=== PATIENT | male | born 1950 | race Two or more races ===

== ENCOUNTER 2017-12-15 04:05 | Emergency (ER) | payer MEDICARE ==
[~2017-12-15] VITALS: Ht 175.3 cm; Wt 72.6 kg
[~2017-12-15 04:05] MED LIST: CIPRO500 MG PO
--- NOTE | 2017-12-15 04:25 | Emergency Room Report ---
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 Thought "I was going to pass out. " He states he always has pain to legs, no acute worsening tonight. Chest pain is left and right side of chest, worse with movement, reproducible. + smoker Denies ETOH, drug use No history of CAD, DM, HTN No history of previous stroke Patient denies fever, chills, cough Patient seems more interested in sleeping than providing HPI - I had to continue to wake him up Patient denies homelessness, states he lives with people "that he pays rent" Allergies: Coded Allergies: No Known Allergies (Unverified , 09/11/15) Patient History Past Medical History: other - kidney stone Past Surgical History: none Pertinent Family History: none Social History: Reports: smoking Immunizations: UTD Reviewed Nursing Documentation: PMH: Agreed; PSxH: Agreed Nursing Documentation-PMH Past Medical History: No History, Except For Review of Systems All Other Systems: negative except mentioned in HPI Physical Exam Vital Signs Date Time Temp Pulse Resp B/P (MAP) Pulse Ox O2 Delivery O2 Flow Rate FiO2 12/15/17 04:05 97.7 74 16 128/75 96 Room Air 97.7 Sp02 EP Interpretation: reviewed, normal General Appearance: normal inspection, well appearing, no apparent distress, alert, GCS 15, non-toxic, other - malodorous Head: normocephalic, atraumatic Eyes: bilateral eye PERRL, bilateral eye EOMI ENT: normal ENT inspection, hearing grossly normal, normal pharynx, no angioedema, normal voice, TMs + canals normal, uvula midline, moist mucus membranes Neck: normal inspection, full range of motion, supple, thyroid normal, no meningismus, no bony tend Respiratory: normal inspection, lungs clear, normal breath sounds, no rhonchi, no respiratory distress, no retraction, no accessory muscle use, no wheezing, speaking full sentences, other - Chest pain reproducible to left and right chest wall Cardiovascular #1: regular rate, rhythm, no edema, no JVD, normal capillary refill Gastrointestinal: normal inspection, normal bowel sounds, non tender, soft, no mass, no peritonitis, non-distended, no guarding, no hernia, no pulsatile mass Genitourinary: no CVA tenderness Musculoskeletal: normal inspection, back normal, normal range of motion, no calf tenderness, pelvis stable, Arabella's Sign negative Neurologic: normal inspection, alert, oriented x3, responsive, 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 No leuks. Trop WNL. CXR negative for trauma, PTX, PNA, cardiomegaly, CHF to name a few Was given analgesia for chronic leg pain *Nurse notes another recent IV/venous blood draw puncture wound on his arm near where IV placed here. Likely has been to other ERs/hospitals recently although he denies Patient likely homeless, malingering for retirement Slept immediately upon arrival here and during entire ED stay ER course: Patient has remained stable during ED stay. Disposition: Patient is to be discharged to home Patient is instructed to follow up with their primary care doctor within 5 days. Strict return precautions discussed with patient such as fever, chills, worsening/severe pain, nausea, vomiting, which may indicate severe illness. Patient verbalizes understanding and agrees with plan. Please note that this Emergency Department Report was dictated using [employer] canvas products technology software, occasionally this can lead to erroneous entry secondary to interpretation by the dictation equipment EKG Diagnostic Results Rate: normal Rhythm: NSR ST Segments: no acute changes ASA given to the pt in ED: No Rhythm Strip Diag. Results EP Interpretation: yes Rate: 51 Rhythm: NSR, no PVC's, no ectopy Chest X-Ray Diagnostic Results Chest X-Ray Diagnostic Results : Chest X-Ray Ordered: Yes # of Views/Limited/Complete: 1 View Indication: Chest Pain EP Interpretation: Yes Interpretation: no consolidation, no effusion, no pneumothorax, no acute cardiopulmonary disease Impression: No acute disease Electronically Signed by: Dr Marybeth Orozco MD Last Vital Signs Date Time Temp Pulse Resp B/P (MAP) Pulse Ox O2 Delivery O2 Flow Rate FiO2 12/15/17 04:05 97.7 74 16 128/75 96 Room Air 97.7 Status: improved Disposition: HOME, SELF-CARE Referrals: NOT CHOSEN IPA/,REFERRING (PCP) MARYBETH OROZCO M.D. Dec 15, 2017 04:25
[2017-12-15 04:48] VITALS: BP 121/59
[2017-12-15 04:50] LABS: BASOPHILS % (AUTO) 1.5 % (0.0-2.0); EOSINOPHILS % (AUTO) 2.4 % (0.0-3.0); HEMATOCRIT 43.8 % (42.0-52.0); HEMOGLOBIN 14.6 G/DL (14.2-18.0); LYMPHOCYTES % (AUTO) 35.4 % (20.0-45.0); MEAN CORPUSCULAR VOLUME 89 FL (80-99); MONOCYTES % (AUTO) 9.7 % (1.0-10.0); NEUTROPHILS % (AUTO) 51.1 % (45.0-75.0); PLATELET COUNT 273 K/UL (150-450); RED BLOOD COUNT 4.89 M/UL (4.70-6.10); RED CELL DISTRIBUTION WIDTH 13.6 % (11.6-14.8); WHITE BLOOD COUNT 6.8 K/UL (4.8-10.8)
[2017-12-15 05:02] LABS: ANION GAP 4 mmol/L (5-15); BLOOD UREA NITROGEN 19 mg/dL (7-18); CALCIUM 10.6 MG/DL (8.5-10.1); CARBON DIOXIDE 31 MMOL/L (21-32); CHLORIDE 104 MMOL/L (98-107); POTASSIUM 4.1 MMOL/L (3.5-5.1); SODIUM 139 MMOL/L (136-145)
[2017-12-15 05:16] LABS: ALANINE AMINOTRANSFERASE 17 U/L (12-78); ALBUMIN 3.2 G/DL (3.4-5.0); ALBUMIN/GLOBULIN RATIO 0.8 (1.0-2.7); ALKALINE PHOSPHATASE 68 U/L (46-116); ASPARTATE AMINO TRANSFERASE 15 U/L (15-37); BILIRUBIN,TOTAL 0.5 MG/DL (0.2-1.0); CKMB 3.1 NG/ML (0.0-3.6); CREATINE KINASE 128 U/L (26-308)
[2017-12-15 06:31] VITALS: BP 100/46
[2017-12-15 06:33] VITALS: BP 100/46
--- NOTE | 2017-12-15 10:16 | Diagnostic Imaging Report ---
Indication: Chest pain Technique: One view of the chest Comparison: none Findings: No acute infiltrates, effusions, or congestion. Tortuous calcified aorta. Normal heart size. Upper mediastinum unremarkable. There is a faint 15 mm nodule seen in the left midlung which is not definitely evident previously. Impression: 15 mm left midlung nodule, not definitely evident previously. Consider CT for further evaluation. This was discussed by phone with Dr. Tony at the time of interpretation No acute process otherwise
--- NOTE | 2017-12-18 19:29 | Cardiology Report ---
APPROVED REPORT EKG Measurement Heart [id number] Sinus bradycardia Moderate voltage criteria for LVH, may be normal variant Borderline ECG
== END 2017-12-15 06:33 | disposition home or self-care (01) ==
LOC: EDBD 04:05 → EMR 04:18
DX: R07.89 Other chest pain (principal); R26.2 Difficulty in walking, not elsewhere classified; F17.200 Nicotine dependence, unspecified, uncomplicated
CPT/HCPCS: 36415; 71045; 80053; 82550; 82553; 84484; 85025; 93005; 99283